=== PATIENT | female | born 1975 | race Caucasian/White ===

== ENCOUNTER 2020-09-15 23:11 | Emergency (ER) | payer SELFPAY ==
[2020-09-15 23:18] VITALS: BP 200/97
== END 2020-09-16 | disposition left against medical advice (07) ==
LOC: ED 23:11
DX: Z53.21 Procedure and treatment not carried out due to patient leaving prior to being seen by health care provider (principal)

== ENCOUNTER 2020-09-16 10:47 | Emergency (ER) | payer MEDICAID ==
[~2020-09-16] VITALS: Ht 157.5 cm; Wt 54.4 kg
[2020-09-16 12:13] VITALS: Ht 157.5 cm; Wt 54.4 kg
[2020-09-16 12:27] LABS: BASOPHIL % 0.4 % (0.2-1.3); PLATELET COUNT 238 x10^3mcL (179-408)
[2020-09-16 13:09] LABS: CALCIUM 9.5 mg/dL (8.5-10.1); CARBON DIOXIDE 24.7 mmol/L (21-32); CHLORIDE SERUM 103 mmol/L (98-107); CREATININE SERUM 0.6 mg/dL (0.6-1.0); GFR1 > 60 mL/min; GLUCOSE SERUM 118 mg/dL (74-106); SODIUM SERUM 139 mmol/L (136-145)
[2020-09-16 13:11] LABS: T3 TOTAL 5.48 ng/mL
[2020-09-16 13:15] LABS: CK-MB 0.9 ng/mL (0-3.6)
[2020-09-16 13:17] LABS: ALBUMIN 3.7 g/dL (3.4-5.0); ALKALINE PHOSPHATASE 170 U/L (46-116); ALT/SGPT 60 U/L (14-59); AST/SGOT 28 U/L (15-37); BILIRUBIN TOTAL 0.27 mg/dL (0.20-1.00); C REACTIVE PROTEIN 0.7 mg/dL (<=0.9); TOTAL PROTEIN, SERUM 8.1 g/dL (6.4-8.2)
[2020-09-16 14:16] LABS: ERYTHROCYTE SED RATE 31 mm/hr (0-20)
[2020-09-16 14:19] LABS: FREE T4 > 8.0 ng/dL (0.76-1.46); FREE THYROXINE INDEX 14.4 ug/dL (1.4-4.5); T4(THYROXINE) 28.3 ug/dL (4.7-13.3)
[2020-09-16 17:03] LABS: UA SPECIFIC GRAVITY >=1.030 (1.005-1.035); microscopic required? YES; urine erythrocyte 2+ (NEGATIVE)
[2020-09-16 18:11] LABS: AMPHETAMINE QUAL UR NONE DETECTED (See below)
[2020-09-16 19:03] VITALS: BP 145/74
== END 2020-09-16 19:03 | disposition home or self-care (01) ==
LOC: ED 10:47
PROVIDERS: Specialist
DX: F41.8 Other specified anxiety disorders (principal); R06.4 Hyperventilation
CPT/HCPCS: 36600; 84439; 85378